=== PATIENT | female | born 1985 | race Caucasian/White ===

== ENCOUNTER 2016-11-25 14:37 | Emergency (ER) | payer MEDICAID ==
[2016-11-25 14:38] VITALS: BMI 31.3
[2016-11-25 14:49] VITALS: RESP 18; TEMP 97.8; O2SAT 100
[2016-11-25] MEDS ORDERED: Sodium Chloride 0.9% 1,000 ML IV STA (15:14)
--- NOTE | 2016-11-25 15:30 | ED PDOC ---
HPI: General Adult Time Seen by Provider: 11/25/16 14:51 Chief Complaint (Nursing): Alcohol Ingestion Chief Complaint (Provider): Alcohol side effect History Per: Patient History/Exam Limitations: no limitations Onset/Duration Of Symptoms: Hrs Current Symptoms Are (Timing): Still Present Additional Complaint(s): Simin Barrett, a 31 year old female, presents to the ED with for evaluation. Patient states that she had too much to drink the night prior and has been vomiting all day. Denies diarrhea, fever, abdominal pain. Past Medical History Reviewed: Historical Data, Nursing Documentation, Vital Signs Vital Signs: Last Vital Signs Temp 97.8 F 11/25/16 17:55 Pulse 72 11/25/16 17:55 Resp 18 11/25/16 17:55 BP 118/67 11/25/16 17:55 Pulse Ox 100 11/25/16 17:55 - Medical History PMH: No Chronic Diseases - Surgical History Surgical History: No Surg Hx - Family History Family History: States: Unknown Family Hx - Social History Current smoker - smoking cessation education provided: Yes Alcohol: None Drugs: Denies - Immunization History Hx Tetanus Toxoid Vaccination: No Hx Influenza Vaccination: No Hx Pneumococcal Vaccination: No - Home Medications Home Medications: Ambulatory Orders Medication Instructions Recorded Nitrofurantoin Macrocrystals 100 mg PO BID #13 cap 11/25/16 [Macrobid] Ondansetron ODT [Zofran ODT] 4 mg PO Q8H PRN #20 odt 11/25/16 - Allergies Allergies/Adverse Reactions: Allergies Allergy/AdvReac Type Severity Reaction Status Date / Time No Known Allergies Allergy Verified 11/25/16 14:53 Review of Systems ROS Statement: Except As Marked, All Systems Reviewed And Found Negative Constitutional: Negative for: Fever Gastrointestinal: Positive for: Vomiting. Negative for: Abdominal Pain, Diarrhea Physical Exam - Reviewed Nursing Documentation Reviewed: Yes Vital Signs Reviewed: Yes - Physical Exam Appears: Positive for: Non-toxic, No Acute Distress Head Exam: Positive for: ATRAUMATIC, NORMAL INSPECTION, NORMOCEPHALIC Skin: Positive for: Normal Color, Warm, Dry. Negative for: Rash Eye Exam: Positive for: Normal appearance, EOMI, PERRL. Negative for: Nystagmus ENT: Positive for: Normal ENT Inspection. Negative for: Nasal Congestion, Tonsillar Exudate Neck: Positive for: Normal, Painless ROM, Supple Cardiovascular/Chest: Positive for: Regular Rate, Rhythm, Chest Non Tender. Negative for: Tachycardia Respiratory: Positive for: Normal Breath Sounds. Negative for: Rales, Rhonchi, Wheezing, Respiratory Distress Gastrointestinal/Abdominal: Positive for: Normal Exam, Bowel Sounds, Soft. Negative for: Tenderness, Mass, Guarding, Rebound Back: Positive for: Normal Inspection. Negative for: L CVA Tenderness, R CVA Tenderness Extremity: Positive for: Normal ROM. Negative for: Tenderness, Pedal Edema, Deformity, Swelling Neurologic/Psych: Positive for: Alert, Oriented, Gait - Laboratory Results Result Diagrams: 11/25/16 15:30 11/25/16 15:15 - ECG O2 Sat by Pulse Oximetry: 100 (RA) Pulse Ox Interpretation: Normal Medical Decision Making Medical Decision Makin Initial Impression: 31 y/o female presenting with alcohol effect Initial Plan: * Alcohol Serum * Comp Metabolic Panel * Upreg * Udip * CBC * NS 1000mls/hr * Zofran 4mg IV * Urinalysis * Reevaluation Scribe Attestation Documented by Yovana Adams acting as a scribe for Roz Vidal MD. Provider Attestation All medical record entries made by the Scribe were at my direction and personally dictated by me. I have reviewed the chart and agree that the record accurately reflects my personal performance of the history, physical exam, medical decision making, and the department course for this patient. I have also personally directed, reviewed, and agree with the discharge instructions and disposition. Disposition - Clinical Impression Clinical Impression: Hangover effect, UTI (urinary tract infection) - Disposition Referrals: [facility] [Outside] Disposition: Routine/Home Disposition Time: 17:41 Condition: IMPROVED Prescriptions: Nitrofurantoin Macrocrystals [Macrobid] 100 mg PO BID #13 cap Ondansetron ODT [Zofran ODT] 4 mg PO Q8H PRN #20 odt PRN Reason: Nausea/Vomiting Instructions: Urinary Tract Infection in Women (ED), Alcohol Intoxication (ED) Forms: [facility] (Mauritanian)
[2016-11-25 15:36] LABS: BASO % 0.4 % (0.0-2.0); EOS % 0.3 % (0.0-4.0); HEMATOCRIT 42.7 % (34.0-47.0); LYMPH # 1.3 K/uL (1.0-4.3); LYMPH % 13.8 % (20.0-40.0); MEAN CELL VOLUME 85.7 fl (81.0-99.0); MEAN CORPUSCULAR HEMOGLOBIN 28.7 pg (27.0-31.0); MEAN CORPUSCULAR HGB CONC 33.5 g/dL (33.0-37.0); MEAN PLATELET VOLUME 9.3 fl (7.2-11.7); MONO # 0.4 K/uL (0.0-0.8); MONO % 4.6 % (0.0-10.0); NEUT # 7.8 K/uL (1.8-7.0); NEUT % 80.9 % (50.0-75.0); NRBC % 0.1 % (0.0-0.0); WHITE BLOOD COUNT 9.7 K/uL (4.8-10.8)
[2016-11-25 15:47] LABS: ALB/GLOB RATIO 1.4 (1.0-2.1); ALCOHOL SERUM < 10 mg/dl (0-10); ALKALINE PHOSPHATASE 63 U/L (38-126); ALT/SGPT 22 U/L (9-52); AST/SGOT 23 U/L (14-36); BILIRUBIN,TOTAL 0.8 mg/dl (0.2-1.3); BLOOD UREA NITROGEN 21 mg/dl (7-17); CALCIUM 9.6 mg/dL (8.4-10.2); CARBON DIOXIDE 23 mmol/L (22-30); CHLORIDE 109 mmol/L (98-107); GFR AFRICAN-AMERICAN > 60; GLUCOSE,RANDOM 82 mg/dL (65-105); POTASSIUM 4.3 MMOL/L (3.6-5.0); SODIUM 144 mmol/l (132-148); TOTAL PROTEIN 8.1 G/DL (6.3-8.2)
[2016-11-25 16:33] LABS: RBC URINE 4 /hpf (0-3); URINE BILIRUBIN NEGATIVE (NEGATIVE); URINE BLOOD SMALL (NEGATIVE); URINE COLOR YELLOW (YELLOW); URINE GLUCOSE (UA) NEG (Normal); URINE KETONE 20 mg/dL (NEGATIVE); URINE LEUKOCYTE ESTERASE LARGE Leu/uL (Negative); URINE PROTEIN 30 mg/dL (NEGATIVE); URINE UROBILINOGEN 0.2-1.0 mg/dL (0.2-1.0); WBC URINE 9 /hpf (0-5)
[2016-11-25 17:56] VITALS: BP 118/67; PULSE 72
== END 2016-11-25 18:00 | disposition home or self-care (01) ==
LOC: H.ER 14:37
DX: F10.129 Alcohol abuse with intoxication, unspecified (principal); Y90.0 Blood alcohol level of less than 20 mg/100 ml; N39.0 Urinary tract infection, site not specified
CPT/HCPCS: 80053; 80320; 81003; 81025; 85025; 96360; 99281; J2405; J7040

== ENCOUNTER 2018-06-23 00:22 | Emergency (ER) | payer MEDICAID ==
[2018-06-23 00:22] VITALS: BMI 31.3
[2018-06-23 00:52] VITALS: O2SAT 98
[2018-06-23] MEDS ORDERED: Sodium Chloride 0.9% 1,000 ML IV STA (01:46)
--- NOTE | 2018-06-23 01:54 | ED PDOC ---
HPI: General Adult Time Seen by Provider: 06/23/18 01:12 Chief Complaint (Nursing): Flu-like Symptoms Chief Complaint (Provider): cough, body aches, N/V History Per: Patient History/Exam Limitations: no limitations Additional Complaint(s): 32 y/o F with hx of anxiety, PTSD, who is currently but unsure of how many weeks presenting with cough and persistent N/V. Pt states that she began having a cough and mild sore throat today intermittently productive of whitish sputum. She has severe body aches and nausea with multiple (> 30) episodes of vomiting, unable to keep even water down. Denies ear pain, diarrhea, dizziness. She feels weak but has been urinating normally. Her is sick with similar symptoms. Pt discovered that she was 2 weeks ago but last LMP was about April 07. Past Medical History Reviewed: Historical Data, Nursing Documentation, Vital Signs Vital Signs: Last Vital Signs Temp 98.6 F 06/23/18 00:44 Pulse 95 H 06/23/18 00:44 Resp 16 06/23/18 00:44 BP 127/48 L 06/23/18 00:44 Pulse Ox 98 06/23/18 00:44 - Medical History PMH: Anxiety - Family History Family History: States: Unknown Family Hx - Immunization History Hx Tetanus Toxoid Vaccination: No Hx Influenza Vaccination: No Hx Pneumococcal Vaccination: No - Home Medications Home Medications: Ambulatory Orders Medication Instructions Recorded Nitrofurantoin Macrocrystals 100 mg PO BID #13 cap 11/25/16 [Macrobid] Ondansetron ODT [Zofran ODT] 4 mg PO Q8H PRN #20 odt 11/25/16 Ondansetron ODT [Zofran ODT] 4 mg PO Q8 PRN 5 Days odt 06/23/18 Oseltamivir Phosphate [Tamiflu] 75 mg PO BID #9 capsule 06/23/18 - Allergies Allergies/Adverse Reactions: Allergies Allergy/AdvReac Type Severity Reaction Status Date / Time No Known Allergies Allergy Verified 11/25/16 14:53 Review of Systems Constitutional: Positive for: Fever, Chills ENT: Positive for: Nose Congestion, Throat Pain Respiratory: Positive for: Cough. Negative for: Shortness of Breath Gastrointestinal: Positive for: Nausea, Vomiting. Negative for: Abdominal Pain, Diarrhea Genitourinary Female: Negative for: Dysuria Physical Exam - Reviewed Nursing Documentation Reviewed: Yes Vital Signs Reviewed: Yes - Physical Exam Appears: Positive for: Uncomfortable Skin: Positive for: Normal Color ENT: Positive for: TM Is/Are (occluded by cerumen on left, Right normal), Nasal Congestion. Negative for: Sinus Pain/Drainage, Pharyngeal Erythema, Tonsillar Exudate Cardiovascular/Chest: Positive for: Regular Rate, Rhythm Respiratory: Positive for: Normal Breath Sounds Gastrointestinal/Abdominal: Positive for: Normal Exam Back: Positive for: Other (tenderness on palpation of B/L mid back) Lymphatic: Positive for: Normal Exam Neurological/Psych: Positive for: Awake, Alert, Oriented - Laboratory Results Result Diagrams: 06/23/18 02:00 06/23/18 02:00 - ECG O2 Sat by Pulse Oximetry: 98 Medical Decision Making Medical Decision Making: RApid flu CBC, CMP Urine dip Tylenol 975mg PO x 1 Zofran 4mg IV x 1 NS 1L IV x 1 Urine preg: + Beta-HCG Influenza A+, Tamiflu 75mg PO x 1 ordered. 04:45am: re-evaluated, pain and nausea have improved significantly but continues to have mild nausea (although better since receiving Tylenol). Zofran 4mg IV x 1. 05:00am: nausea has improved significantly, pt drank 8oz of water without any further nausea or vomiting. Stable for d/c home with strict return instructions given. Disposition - Clinical Impression Clinical Impression: Influenza - Patient ED Disposition Is Patient to be Admitted: No - Disposition Referrals: Lo Andersen [Primary Care Provider] - Mariluz Hare MD [Staff Provider] - Disposition: Routine/Home Disposition Time: 05:05 Condition: STABLE Additional Instructions: Follow up with your primary care doctor for re-evaluation of symptoms in the next 1 - 2 days. You should establish care with an automotive generator repairer as soon as possible. Return to ER for worsening symptoms. Take Tylenol for fevers and Zofran as needed for nausea. Get lots of rest and drink plenty of fluids. Prescriptions: Ondansetron ODT [Zofran ODT] 4 mg PO Q8 PRN 5 Days odt PRN Reason: Nausea/Vomiting Oseltamivir Phosphate [Tamiflu] 75 mg PO BID #9 capsule Instructions: Flu, Adult (DC) Forms: [facility] (Mauritanian), [facility] ED School/Work Excuse Print Language: CAMEROONIAN
[2018-06-23 02:10] LABS: BASO % 0.2 % (0.0-2.0); HEMOGLOBIN 12.5 g/dL (12.0-16.0); LYMPH # 0.2 K/uL (1.0-4.3); LYMPH % 2.7 % (20.0-40.0); MEAN CORPUSCULAR HGB CONC 34.1 g/dL (33.0-37.0); MONO # 0.4 K/uL (0.0-0.8); NEUT # 7.4 K/uL (1.8-7.0); NEUT % 92.1 % (50.0-75.0); PLATELET COUNT 187 K/uL (130-400); RBC 4.31 Mil/uL (3.80-5.20); RED CELL DISTRIBUTION WIDTH 13.2 % (11.5-14.5)
[2018-06-23 02:20] LABS: ALB/GLOB RATIO 1.3 (1.0-2.1); ALT/SGPT 25 U/L (9-52); AST/SGOT 18 U/L (14-36); BLOOD UREA NITROGEN 12 mg/dl (7-17); CALCIUM 9.3 mg/dL (8.4-10.2); GFR NON-AFRICAN AMERICAN > 60
[2018-06-23 03:57] LABS: SQUAMOUS EPITHIAL 3 /hpf (0-5); URINE AMORPHOUS SEDIMENT MODERATE /ul (<OCC); URINE BACTERIA FEW (<OCC); URINE BILIRUBIN NEGATIVE (NEGATIVE); URINE BLOOD NEGATIVE (NEGATIVE); URINE CLARITY TURBID (Clear); URINE COLOR YELLOW (YELLOW); URINE GLUCOSE (UA) NEG (NEGATIVE); URINE LEUKOCYTE ESTERASE NEG Leu/uL (Negative); URINE PROTEIN 30 mg/dL (NEGATIVE); URINE UROBILINOGEN 0.2-1.0 mg/dL (0.2-1.0)
[2018-06-23 04:04] LABS: BANDS 4 % (0-2); LYMPHOCYTE 4 % (20-50); MONOCYTE 7 % (0-10); NEUTROPHIL 85 % (42-75); TOTAL CELLS COUNTED 100
[2018-06-23 04:05] LABS: PLATELET ESTIMATE NORMAL (NORMAL)
[2018-06-23 05:31] VITALS: BP 122/70; PULSE 86; RESP 18; TEMP 98.8
== END 2018-06-23 05:05 | disposition home or self-care (01) ==
LOC: H.ER 00:22
DX: J11.1 Influenza due to unidentified influenza virus with other respiratory manifestations (principal); F43.10 Post-traumatic stress disorder, unspecified
CPT/HCPCS: 80053; 81003; 84702; 85025; 87086; 87804; 96361; 96374; 99283; J2405; J7030

== ENCOUNTER 2018-07-18 18:31 | Emergency (ER) | payer MEDICAID ==
[2018-07-18 18:42] VITALS: RESP 16; TEMP 98.4; O2SAT 98
[2018-07-18 18:43] VITALS: BMI 27.7
--- NOTE | 2018-07-18 20:01 | ED PDOC ---
HPI: Abdomen Time Seen by Provider: 07/18/18 19:13 Chief Complaint (Nursing): Abdominal Pain Chief Complaint (Provider): Abdominal pain, vaginal bleeding in History Per: Patient History/Exam Limitations: no limitations Onset/Duration Of Symptoms: Hrs Outside of [place] travel?: No Additional Complaint(s): 32 yo (4 C-sections) presents with vaginal bleeding and cramping. 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 PT sates she has not been seen for evaluation of . PT states that she had some bleeding. Pt states she was seen last month for flu like symptoms and informed she was . Pt began having some bleeding a few hours ago, dark in color. Pt states she vomited x 1 and felt weak but that lasted only a short period of time. Pt now reports continued spotting and lower abdominal cramping. PT reports having 4 previous C-sections and was concerned about having a fifth. Pt states she was considering due to concern of uterus rupture which is was she did not previous get care. Past Medical History Reviewed: Historical Data, Nursing Documentation, Vital Signs Vital Signs: Last Vital Signs Temp 98.4 F 07/18/18 18:41 Pulse 84 07/18/18 18:41 Resp 16 07/18/18 18:41 BP 101/59 L 07/18/18 18:41 Pulse Ox 98 07/18/18 18:41 Primary Care Provider: FAMILY PROVIDER,NO - Medical History PMH: Anxiety - Surgical History Surgical History: No Surg Hx - Family History Family History: States: Unknown Family Hx - Immunization History Hx Tetanus Toxoid Vaccination: No Hx Influenza Vaccination: No Hx Pneumococcal Vaccination: No - Home Medications Home Medications: Ambulatory Orders Medication Instructions Recorded Nitrofurantoin Macrocrystals 100 mg PO BID #13 cap 11/25/16 [Macrobid] Ondansetron ODT [Zofran ODT] 4 mg PO Q8H PRN #20 odt 11/25/16 Ondansetron ODT [Zofran ODT] 4 mg PO Q8 PRN 5 Days odt 06/23/18 Oseltamivir Phosphate [Tamiflu] 75 mg PO BID #9 capsule 06/23/18 Cephalexin [Keflex] 500 mg PO TID 7 Days #21 capsule 07/19/18 - Allergies Allergies/Adverse Reactions: Allergies Allergy/AdvReac Type Severity Reaction Status Date / Time No Known Allergies Allergy Verified 11/25/16 14:53 Review of Systems ROS Statement: Except As Marked, All Systems Reviewed And Found Negative Constitutional: Negative for: Fever, Chills Gastrointestinal: Positive for: Vomiting (x 1 ) Genitourinary Female: Positive for: Vaginal Bleeding, Pelvic Pain. Negative for: Dysuria Physical Exam - Reviewed Nursing Documentation Reviewed: Yes Vital Signs Reviewed: Yes - Physical Exam Appears: Positive for: Well, Non-toxic, No Acute Distress Head Exam: Positive for: ATRAUMATIC, NORMAL INSPECTION, NORMOCEPHALIC Skin: Positive for: Normal Color, Warm, DRY Eye Exam: Positive for: Normal appearance ENT: Positive for: Normal ENT Inspection Neck: Positive for: Normal, Painless ROM Cardiovascular/Chest: Positive for: Regular Rate, Rhythm Respiratory: Positive for: Normal Breath Sounds. Negative for: Accessory Muscle Use, Respiratory Distress Gastrointestinal/Abdominal: Positive for: Soft, Tenderness (Suprapubic ). Negative for: Normal Exam Back: Positive for: Normal Inspection Extremity: Positive for: Normal ROM Neurological/Psych: Positive for: Awake, Alert, Normal Tone - Laboratory Results Result Diagrams: 07/18/18 21:16 07/18/18 21:16 - ECG O2 Sat by Pulse Oximetry: 98 Pulse Ox Interpretation: Normal Medical Decision Making Medical Decision Making: Endorsed pending labs and US. Disposition - Clinical Impression Clinical Impression: Abdominal pain during - Patient ED Disposition Is Patient to be Admitted: Transfer of Care - Disposition Disposition: Transfer of Care Disposition Time: 20:00 Condition: STABLE Prescriptions: Cephalexin [Keflex] 500 mg PO TID 7 Days #21 capsule Instructions: Asymptomatic Bacteriuria, Bleeding With , Stomach Pain in Early Print Language: ROMANIAN
--- NOTE | 2018-07-18 20:34 | ED PDOC ---
- Laboratory Results Result Diagrams: 07/18/18 21:16 07/18/18 21:16 - ECG O2 Sat by Pulse Oximetry: 98 Medical Decision Making Medical Decision Makin case endorsed to me by Etta PAC, pending labs, US and dispo 23:00 pt reports 3months of N/V, fatigue and abdominal pain, today pain got worse as well as 2 blood clots and vaginal spotting pt complaining of right flank pain, renal US ordered 23:55 US reports EXAM: US Obstetrical, Complete <14 weeks CLINICAL HISTORY: Pain TECHNIQUE: Transvaginal and transabdominal imaging of the maternal pelvis and a <14 week gestation with image documentation. COMPARISON: None provided. FINDINGS: GESTATION: A single living IUP is identified estimated to be 14 weeks and 6 days in age, +/- 1 week and 0 days. cardiac activity documented bleeding at a rate of approximately 144 BPM. UTERUS: Unremarkable. No myometrial mass. CERVIX: Closed. Unremarkable. OVARIES: Not detected. FREE FLUID: No free fluid. IMPRESSION: Single living intrauterine . No acute abnormality. Electronically signed on July 18, 2018 11:51:31 PM EDT by: Iker Hernandez M.D., M.B.A., Certified By [employer] Trained MRI and CT Specialist EXAM: US Retroperitoneum, Renal. CLINICAL HISTORY: Rt flank pain TECHNIQUE: Real-time ultrasound of the retroperitoneum with image documentation. COMPARISON: None provided. FINDINGS: RIGHT KIDNEY: Unremarkable. Normal in size and contour. No renal mass or calculus. There is mild calyceal dilatation noted and a prominent right renal pelvis thought compatible with mild right hydronephrosis. LEFT KIDNEY: Unremarkable. Normal in size and contour. No renal mass or calculus. No hydronephrosis. BLADDER: Unremarkable as visualized. MISCELLANEOUS: No other significant abnormality evident. IMPRESSION: Evidence of minimal right hydronephrosis detected. Unremarkable evaluation of the left kidney. Electronically signed on July 18, 2018 11:51:39 PM EDT by: Iker Hernandez M.D., M.B.A., Certified By [employer] Trained MRI and CT Specialist 00:05 on re eval pt reports feeling better, pt reports she plans on having an as she has had many C sections and at high risk for complications, she has an appointment in 3 days, pt reports no N/V and has been using aureliano to help Discussed results, diagnosis, treatment, return precautions and f/u with pt who is understanding, in agreement and stable for dc Disposition Counseled Patient/Family Regarding: Studies Performed, Diagnosis, Need For Followup, Rx Given - Clinical Impression Clinical Impression: Abdominal pain during , Asymptomatic bacteriuria, Hydronephrosis, right, Threatened - POA Present On Arrival: None - Disposition Referrals: FAMILY PROVIDER,NO [Primary Care Provider] - Disposition: Routine/Home Disposition Time: 00:15 Condition: IMPROVED Additional Instructions: The emergency medical care you received today was directed at your acute symptoms. If you were prescribed any medication, please fill it and take as directed. It may take several days for your symptoms to resolve. Return to the Emergency Department if your symptoms worsen, do not improve, or if you have any other problems. Please contact your doctor in 2 days for re-evaluation and follow up / or call one of the physicians/clinics you have been referred to that are listed on the Patient Visit Information form that is included in your discharge packet. Bring any paperwork you were given at discharge with you along with any medications you are taking to your follow up visit. Our treatment cannot replace ongoing medical care by a primary care provider (PCP) outside of the emergency department. Prescriptions: Cephalexin [Keflex] 500 mg PO TID 7 Days #21 capsule Instructions: Asymptomatic Bacteriuria, Bleeding With , Stomach Pain in Early Print Language: BAHAMIAN
[2018-07-18 21:30] LABS: BASO # 0.1 K/uL (0.0-0.2); BASO % 0.7 % (0.0-2.0); EOS # 0.1 K/uL (0.0-0.7); EOS % 1.1 % (0.0-4.0); HEMOGLOBIN 13.6 g/dL (12.0-16.0); LYMPH # 2.2 K/uL (1.0-4.3); LYMPH % 23.9 % (20.0-40.0); MEAN CELL VOLUME 88.1 fl (81.0-99.0); MEAN CORPUSCULAR HEMOGLOBIN 29.1 pg (27.0-31.0); MEAN PLATELET VOLUME 9.4 fl (7.2-11.7); MONO # 0.5 K/uL (0.0-0.8); MONO % 5.4 % (0.0-10.0); NEUT # 6.5 K/uL (1.8-7.0); NEUT % 68.9 % (50.0-75.0); RBC 4.66 Mil/uL (3.80-5.20); RED CELL DISTRIBUTION WIDTH 14.3 % (11.5-14.5); WHITE BLOOD COUNT 9.4 K/uL (4.8-10.8)
[2018-07-18 21:44] LABS: SQUAMOUS EPITHIAL 7 /hpf (0-5); URINE BACTERIA OCC (<OCC); URINE BILIRUBIN SMALL (NEGATIVE); URINE BLOOD NEGATIVE (NEGATIVE); URINE CLARITY CLOUDY (Clear); URINE COLOR AMBER (YELLOW); URINE GLUCOSE (UA) NEG (NEGATIVE); URINE LEUKOCYTE ESTERASE NEG Leu/uL (Negative); URINE PROTEIN 100 mg/dL (NEGATIVE); URINE UROBILINOGEN 0.2-1.0 mg/dL (0.2-1.0)
[2018-07-18 21:46] LABS: ALB/GLOB RATIO 1.1 (1.0-2.1); ALT/SGPT 10 U/L (9-52); AST/SGOT 22 U/L (14-36); BLOOD UREA NITROGEN 12 mg/dl (7-17); CALCIUM 8.7 mg/dL (8.4-10.2); GFR NON-AFRICAN AMERICAN > 60
[2018-07-19 00:48] VITALS: BP 107/73; PULSE 72
--- NOTE | 2018-07-19 15:30 | US ---
Date of service: 07/18/2018 PROCEDURE: Ultrasound of the Kidneys HISTORY: Right flank pain COMPARISON: None available. TECHNIQUE: Sonogram of the kidneys. FINDINGS: RIGHT KIDNEY: Measures: 11.9 x 7.4 x 5.6 cm. Normal in size, contour and echogenicity. No stone stone or solid mass. There is mild right-sided hydronephrosis. LEFT KIDNEY: Measures: 12.3 x 4.2 x 4.3 cm. Normal in size, contour and echogenicity. No stone, solid mass lesion or hydronephrosis visualized. OTHER FINDINGS: None. IMPRESSION: Mild right-sided hydronephrosis.
--- NOTE | 2018-07-19 18:40 | US ---
Date of service: 07/18/2018 PROCEDURE: OB Pelvic Ultrasound HISTORY: Vaginal bleeding LMP: Unknown COMPARISON: Compare no relevant prior study available for comparison FINDINGS: UTERUS: There is a single living intrauterine gestation in breech presentation.. Placenta is posterior and fundal in location free of cervical os. Measurements: BPD: 2.8 cm = 15 weeks 1 day HC: 10.7 cm = 15 weeks 1 day AC: 8.4 cm = 14 weeks 5 days FL: 1.5 cm = 14 weeks 4 day Mean ultrasound age = 14 weeks 6 days +/-1 week 0 day Heart motion detected. Heart rate: 143 BPM motion detected. Note that dedicated anatomy survey was not performed due to early age and should be performed optimally between 19 and 20 weeks CERVIX: Measures 5.0 cm. Long and closed. No cervical abnormality seen. RIGHT OVARY: Not visualized LEFT OVARY: Not visualized FREE FLUID: None. OTHER FINDINGS: None. IMPRESSION: There is a single living intrauterine gestation in breech presentation estimated approximately 14 weeks 6 days +/-1 week 0 day. motion and heart motion detected. Heart rate document at 143 BPM. Note that dedicated anatomy survey not performed at this time due to early age the and should be performed optimally between 19 and 20 weeks. Placenta is posterior and fundal in location free of the cervical os. Neither ovary visualized. This report port was placed in PA review for follow-up
== END 2018-07-19 00:48 | disposition home or self-care (01) ==
LOC: H.ER 18:31 → SUPCPDRO 18:31 → H.ER 07-19 00:48
DX: O26.91 Pregnancy related conditions, unspecified, first trimester (principal); R10.2 Pelvic and perineal pain; Z3A.14 14 weeks gestation of pregnancy; N13.30 Unspecified hydronephrosis; O03.9 Complete or unspecified spontaneous abortion without complication